=== PATIENT | female | born 1950 | race Caucasian/White ===

== ENCOUNTER → 2018-05-15 | Outpatient (CLI) | payer MEDICARE, OTHER ==
--- NOTE | 2018-05-15 13:44 | Diagnostic Imaging Report ---
EXAM: RENAL ULTRASOUND Date: 05/15/2018 12:43 PM Indication: UTI Comparison: None Technique: Sonographic evaluation of the kidneys. Color doppler was utilized to supplement evaluation. FINDINGS: KIDNEYS: Right: Measures 9.7 cm in length. No hydronephrosis or solid mass lesion identified. Renal cortex measures 1.6 cm. Left: Measures 9.5 cm in length. No hydronephrosis or solid mass lesion identified. Renal cortex measures 1.5 cm. 0.8 cm superior and 1.2 cm mid cysts noted. URINARY BLADDER: Unremarkable. OTHER: None. IMPRESSION: Unremarkable renal ultrasound. Signed by: Dr. Marquis Sánchez MD on 05/15/2018 1:41 PM
== END ==
LOC: US 12:35
PROVIDERS: ATTEND Urology
DX: N39.0 Urinary tract infection, site not specified (principal)
CPT/HCPCS: 76770

== ENCOUNTER → 2018-09-01 | Day surgery (SDC) | payer MEDICARE, OTHER ==
[2018-08-31 15:01] LABS: BASOPHILS # (AUTO) 0.2 (0.0-0.1); BASOPHILS % 1.5 % (0.0-1.0); EOSINOPHILS # (AUTO) 0.8 (0.0-0.4); EOSINOPHILS % 7.8 % (0.0-6.0); HEMATOCRIT 39.3 % (34.2-44.1); HEMOGLOBIN 13.4 g/dL (12.0-16.0); LYMPHOCYTES # (AUTO) 3.3 (1.0-3.2); LYMPHOCYTES % 32.9 % (18.0-39.1); MEAN CORPUSCULAR HEMOGLOBIN 32.5 pg (28-32); MEAN CORPUSCULAR HGB CONC 34.1 g/dL (31-35); MEAN CORPUSCULAR VOLUME 95.4 fL (81-99); MONOCYTES # (AUTO) 0.9 (0.2-0.8); NEUTROPHILS # (AUTO) 4.8 (2.1-6.9); NEUTROPHILS % 48.4 % (38.7-80.0); PLATELET COUNT 251 x10e3/uL (140-360); RED BLOOD COUNT 4.12 x10e6/uL (3.6-5.1); RED CELL DISTRIBUTION WIDTH 13.2 % (11.7-14.4)
[2018-08-31 15:11] LABS: INR 0.92; PROTHROMBIN TIME 12.8 seconds (11.9-14.5)
[2018-08-31 15:19] LABS: ALANINE AMINOTRANSFERASE 13 IU/L (0-55); ALBUMIN 3.7 g/dL (3.5-5.0); ALBUMIN/GLOBULIN RATIO 1.2 (0.8-2.0); ALKALINE PHOSPHATASE 91 IU/L (40-150); BLOOD UREA NITROGEN 13 mg/dL (7-26); BUN/CREATININE RATIO 16 (6-25); CALCIUM 9.3 mg/dL (8.4-10.2); CARBON DIOXIDE 25 mmol/L (22-29); CHLORIDE 101 mmol/L (98-107); CHOL/HDL RATIO 2.6 (3.0-3.6); CHOLESTEROL 145 MD/DL (0-199); CREATININE, SERUM 0.82 mg/dL (0.57-1.11); EST GLOMERULAR FILTRATION RATE > 60 ML/MIN (60-); GLUCOSE 108 mg/dL (74-118); HDL CHOLESTEROL 56 MG/DL (40-60); LDL CHOLESTEROL 63 MG/DL (60-130); SODIUM 133 mmol/L (136-145); TRIGLYCERIDES 130 MG/DL (0-149)
[2018-09-01] VITALS (7 sets, daily range): BP systolic 135–172; BP diastolic 58–104
[~2018-09-01] VITALS: Ht 167.6 cm; Wt 63.5 kg
[~2018-09-01] MED LIST: ALPRAZOLAM 0.5 MG TAB ONE; AMLODIPINE BESY10 MG PO; AMLODOPINE PO; ATENOLOL50 MG PO; ATORVASTATIN CA10 MG PO; DIPHENHYDRAMINE HCL 25 MG CAP ONE; FENTANYL CITRATE/PF 100MCG/2 ML INJ ONE; GLIMEPIRIDE2 MG PO; HEPARIN SOD/SOD CHLORIDE 2,000 ML ONE; IOPAMIDOL 370 MG/ML 200 ML INFUS..BTL INJ ONE; LIDOCAINE HCL 2% LOCAL 20 ML VIAL ONE; LISINOPRIL10 MG PO; METFORMIN HCL500 MG PO; MIDAZOLAM HCL 2 MG/2 ML VIAL ONE; NARCO PO; NORCO 10-325 T1 EACH PO; PANTOPRAZOLE SO40 MG PO; PLAVIX75 MG PO; SODIUM CHLORIDE 0.9% 1000ML 1,000 ML ONE; [UNRECOGNIZED DRUG - OTHER] PO; glimepride PO
--- OUTSIDE RECORDS SUMMARY | 2018-09-01 13:19 | XMS REPORT ---
Author Author [facility] Address Unknown Phone Unavailable Care Team Providers Care Rv Servicer Name Role Phone OSMEL MÉNDEZ Unavailable Unavailable Payers Payer Name Policy Type Policy Number Effective Date Expiration Date Problems This patient has no known problems. Allergies, Adverse Reactions, Alerts Allergy Name Allergy Type Status Severity Reaction(s) Onset Date Inactive Date Treating Clinician Comments NSAIDS (Non-Steroidal Anti-Inflamma DA Active U 2008-12-09 00:00:00 naproxen DA Active U 2008-12-09 00:00:00 CIPRO DA Active U 2002-09-04 00:00:00 NAPROXEN DA Active U 2002-09-04 00:00:00 Medications This patient has no known medications. Results Test Description Test Time Test Comments Text Results Atomic Results Result Comments US RENAL RETROPERITONEAL COMP 2018-05-15 13:40:00 [place] [address] Patient Name: ELIN CARTWRIGHT MR #: [id number] : 1950 Age/Sex: 68/F Req #: [id number] Adm Physician: Ordered by: OSMEL MÉNDEZ MD Report #: [id number] Location: US Room/Bed: Procedure: [id number] US/US RENAL RETROPERITONEAL COMP Exam Date: Exam Time: REPORT STATUS: Signed EXAM: RENAL ULTRASOUND Date: 05/15/2018 12:43 PM Indication: UTI Comparison: None Technique: Sonographic evaluation of the kidneys. Color doppler was utilized to supplement evaluation. FINDINGS: KIDNEYS: Right: Measures 9.7 cm in length. No hydronephrosis or solid mass lesion identified. Renal cortex measures 1.6 cm. Left: Measures 9.5 cm in length. No hydronephrosis or solid mass lesion identified. Renal cortex measures 1.5 cm. 0.8 cm superior and 1.2 cm mid cysts noted. URINARY BLADDER: Unremarkable. OTHER: None. IMPRESSION: Unremarkable renal ultrasound. Signed by: Dr. Marquis Acuña MD on 05/15/2018 1:41 PM Dictated By: MARQUIS ACUÑA MD [id number] Transcribed By: JAROD on 05/15/18 1341 COPY TO: OSMEL MÉNDEZ MD
--- NOTE | 2018-09-01 15:30 | NUR ---
1530 Prepped and ready for LHC and Peripheral by Dr Dinh, Rm #20 Identiferx2. Ox4. Respiration on room air at 99%. Left ac iv #[address] w/o s/s infiltration on dial flow on off position. Premedicated with Xanax 0.5, Benadryl 50mg po Assist to bathroom prior and voided qs . Pt ID,fall risk and allergy band on. Denies c/o CP or SOB Prepped femoral sites Bilateral and PPx4 palpable and marked. Bp slightly elevated and comfort measures and stimuli control performed. Med reconciliation list with pt family. Evelyn daughter at bedside.Bed in low position call light at bedside side rail up. Reviewed with pt and family procedural day and comfortable at this time. leann/rn
--- NOTE | 2018-09-01 17:50 | NUR ---
Continuity of care from procedure to recovery. review of procedural findings and medications given. Patient drowsy, easily aroused. maintains airway and 2L/nc saturations of 96-98%. No gross issues of pressure, pain, pallor or dysrhythmia. IV site patent with NS 0.9% at 100ml/hr by dial-flow. patient hemodynamically stable with hemostasis. right groin dressing CDI w/o s/s of bleeding. aproximately 2cm x 2cm area marked of raised area over puncture site with strong pulse/thrill. Dr Dinh to see groin. no orders. clean dressing applied as well as 10 minutes of light tactile pressure [facility]. transported to [facility] [place]: Diagnostic LHC, Coronary angiography, left ventriculogram, bilateral lower extremities runoff, abdominal Aortagram Sheath puller: Brayan PH[place]EN[place], deployed Vascade closure device Meds Given Intra-Procedure Sedatives Versed - 2 mg Fentanyl - 50 mcg Fluids Input - 100 Output - 500 Contrast Isovue 370 - 90 ml
--- NOTE | 2018-09-01 18:20 | NUR ---
Dr Dinh to see patient and family at bedside. Resting with eyes closed w/o gross distress or obvious need. VS wnl. cont to monitor - cgf
--- NOTE | 2018-09-01 19:30 | NUR ---
pt with urgency. assisted to bed vann. farzad care provided by female RN. right groin remains intact w/o change.
--- NOTE | 2018-09-01 20:15 | NUR ---
Pt meets DC criteria. Right groin assessed for s/s of complication and presence of hematoma. Right groin soft inside marked area. Skin warm, dry, no discolor, and pulses present. IV removed from Left AC area, and coban dressing applied. Distal tip appears intact. VS WNL. Pt denies pain, sob, or need at this time. Pt to bathroom under own strength for voiding. Family at bedside. Review of discharge paperwork and follow up instructions. verbalized understanding. Pt to wheelchair and transported to front of hospital. Transferred to private vehicle under own power w/o incident with DC paperwork in hand. - cgf
--- NOTE | 2018-11-10 08:13 | Operative Report ---
DATE OF PROCEDURE: 09/01/2018 SURGEON: Ciro Dinh MD INDICATIONS: 1. Peripheral arterial disease. 2. Coronary artery disease. PROCEDURES PERFORMED: 1. Left heart catheterization, selective coronary angiography, left ventriculography. 2. Abdominal aortogram with runoff to bilateral femoral arteries. COMPLICATIONS: None. RECOMMENDATIONS: Medical therapy. DESCRIPTION OF PROCEDURE: Access obtained in the right femoral artery. A 6-Cymro sheath was placed. Diagnostic coronary angiogram revealed mild diffuse coronary artery disease in all coronary vessels, 20% to 30% luminal stenosis. LV ejection fraction 70%. Abdominal aortogram demonstrated mild peripheral arterial disease in both femoral arteries with three vessel runoff. No intervention deemed necessary. Right groin repaired using Vascade closure device. The patient was discharged home same day. Ciro Dinh MD KSB/MODL /[id number]
== END | disposition home or self-care (01) ==
LOC: CATH LAB 13:17
PROVIDERS: ATTEND Internal Medicine Interventional Cardiology
DX: I25.10 Atherosclerotic heart disease of native coronary artery without angina pectoris (principal); I73.9 Peripheral vascular disease, unspecified; I10 Essential (primary) hypertension; R94.39 Abnormal result of other cardiovascular function study; E78.00 Pure hypercholesterolemia, unspecified; E13.9 Other specified diabetes mellitus without complications; I87.2 Venous insufficiency (chronic) (peripheral); F17.200 Nicotine dependence, unspecified, uncomplicated; Z01.812 Encounter for preprocedural laboratory examination; Z79.02 Long term (current) use of antithrombotics/antiplatelets; Z79.84 Long term (current) use of oral hypoglycemic drugs
CPT/HCPCS: 36415; 75625; 75630; 75716; 80053; 80061; 85025; 85610; 93458; C1760; C1769 ×2; J2001; J2250; J7030; Q9967; 36247